=== PATIENT | male | born 1930 | race Caucasian/White ===

== ENCOUNTER 2018-04-30 13:05 | Inpatient (IN) | payer MEDICARE, BC ==
--- NOTE | 2018-04-30 13:55 | ED ---
General Adult HPI - General Chief complaint: Recheck/Abnormal Lab/Rx Stated complaint: coughing up blood Time Seen by Provider: 04/30/18 13:45 Source: patient, RN notes reviewed Mode of arrival: ambulatory Limitations: no limitations - History of Present Illness Initial comments: Patient is a pleasant 87-year-old male presenting to the emergency Department with hemoptysis. Onset was prior to arrival. Patient has had 4 or 5 episodes of tablespoons size bright red blood with cough. No history of similar symptoms previously. Patient is not on blood thinners. Patient has not had recent illness or recent cough. No other areas of bleeding. No dyspnea or chest pain. No leg swelling or calf pain. - Related Data Home Medications Medication Instructions Recorded Confirmed Albuterol Inhaler [Ventolin Hfa 2 puff INHALATION RT-Q6H PRN 04/30/18 04/30/18 Inhaler] Allopurinol [Zyloprim] 300 mg PO DAILY 04/30/18 04/30/18 Ascorbic Acid [Vitamin C] 1,000 mg PO DAILY 04/30/18 04/30/18 Aspirin [Adult Low Dose Aspirin EC] 81 mg PO DAILY 04/30/18 04/30/18 Carvedilol [Coreg] 3.125 mg PO BID 04/30/18 04/30/18 Cyanocobalamin (Vitamin B-12) 1,000 mcg PO DAILY 04/30/18 04/30/18 [Vitamin B-12] Gabapentin [Neurontin] 300 mg PO TID 04/30/18 04/30/18 Glucosam/Vito-Msm1/C/Bright/Bosw 1 tab PO DAILY 04/30/18 04/30/18 [Glucosamine-Chondroitin Tablet] Ibuprofen [Motrin] 800 mg PO TID PRN 04/30/18 04/30/18 Indomethacin [Indocin] 50 mg PO BID 04/30/18 04/30/18 Levothyroxine Sodium 125 mcg PO DAILY 04/30/18 04/30/18 Multivitamin [Men's Multi-Vitamin] 1 tab PO DAILY 04/30/18 04/30/18 Simvastatin [Zocor] 40 mg PO DAILY 04/30/18 04/30/18 Timolol [Betimol 0.5% Ophth Soln] 1 drop BOTH EYES BID 06/24/18 06/24/18 Allergies Allergy/AdvReac Type Severity Reaction Status Date / Time codeine AdvReac Nausea & Verified 04/30/18 14:45 Vomiting Review of Systems ROS Statement: Those systems with pertinent positive or pertinent negative responses have been documented in the HPI. ROS Other: All systems not noted in ROS Statement are negative. Constitutional: Denies: fever Eyes: Denies: eye pain ENT: Denies: ear pain Respiratory: Reports: hemoptysis. Denies: dyspnea Cardiovascular: Denies: chest pain Endocrine: Denies: fatigue Gastrointestinal: Denies: abdominal pain Genitourinary: Denies: dysuria Musculoskeletal: Denies: back pain Skin: Denies: rash Neurological: Denies: weakness Past Medical History Past Medical History: Coronary Artery Disease (CAD), Chest Pain / Angina History of Any Multi-Drug Resistant Organisms: None Reported Past Surgical History: Back Surgery, Coronary Bypass/CABG, Orthopedic Surgery Past Psychological History: No Psychological Hx Reported Smoking Status: Former smoker Past Alcohol Use History: Occasional Past Drug Use History: None Reported General Exam Limitations: no limitations General appearance: alert, in no apparent distress Head exam: Present: atraumatic Eye exam: Present: normal appearance, PERRL ENT exam: Present: normal oropharynx Neck exam: Present: normal inspection Respiratory exam: Present: normal lung sounds bilaterally Cardiovascular Exam: Present: regular rate, normal rhythm, systolic murmur ( Patient states he is aware of murmur) GI/Abdominal exam: Present: soft. Absent: tenderness Extremities exam: Present: normal inspection. Absent: pedal edema, calf tenderness Neurological exam: Present: alert Psychiatric exam: Present: normal affect, normal mood Skin exam: Present: normal color Course Vital Signs 04/30/18 04/30/18 13:21 13:49 Temperature 98.0 F Pulse Rate 71 Respiratory 18 18 Rate Blood Pressure 169/82 O2 Sat by Pulse 97 Oximetry EKG Findings - EKG Comments: EKG Findings:: Sinus rhythm at 67. For screening AV block [place] of 222. QRS 96. QT 388. QTC 409. Normal axis. Normal QRS. No acute ST change. Medical Decision Making - Medical Decision Making Patient reevaluated and resting comfortably in bed. Patient and family updated on results and concerns. Case was discussed in detail with Dr. Raphael, who will admit for Dr. Gutierrez. Patient states he does see Dr. Ruff. - Lab Data Result diagrams: 04/30/18 13:51 04/30/18 13:51 Lab Results 04/30/18 04/30/18 04/30/18 Range/Units 13:51 13:51 13:51 WBC 9.7 (3.8-10.6) k/uL RBC 3.81 L (4.30-5.90) m/uL Hgb 12.4 L (13.0-17.5) gm/dL Hct 37.9 L (39.0-53.0) % MCV 99.4 (80.0-100.0) fL MCH 32.4 (25.0-35.0) pg MCHC 32.6 (31.0-37.0) g/dL RDW 12.6 (11.5-15.5) % Plt Count 200 (150-450) k/uL Neutrophils % 72 % Lymphocytes % 18 % Monocytes % 6 % Eosinophils % 2 % Basophils % 0 % Neutrophils # 7.0 (1.3-7.7) k/uL Lymphocytes # 1.7 (1.0-4.8) k/uL Monocytes # 0.6 (0-1.0) k/uL Eosinophils # 0.1 (0-0.7) k/uL Basophils # 0.0 (0-0.2) k/uL PT 9.8 (9.0-12.0) sec INR 1.0 (<1.2) APTT 23.9 (22.0-30.0) sec Sodium 140 (137-145) mmol/L Potassium 5.4 H (3.5-5.1) mmol/L Chloride 104 (98-107) mmol/L Carbon Dioxide 23 (22-30) mmol/L Anion Gap 13 mmol/L BUN 35 H (9-20) mg/dL Creatinine 0.95 (0.66-1.25) mg/dL Est GFR (CKD-EPI)AfAm 82 (>60 ml/min/1.73 sqM) Est GFR (CKD-EPI)NonAf 71 (>60 ml/min/1.73 sqM) Glucose 108 H (74-99) mg/dL Calcium 9.0 (8.4-10.2) mg/dL Total Bilirubin 0.6 (0.2-1.3) mg/dL AST 22 (17-59) U/L ALT 29 (21-72) U/L Alkaline Phosphatase 85 (38-126) U/L Total Protein 7.5 (6.3-8.2) g/dL Albumin 4.3 (3.5-5.0) g/dL - Radiology Data Radiology results: report reviewed (Computed tomography scan of the chest shows no pulmonary embolism. Masslike areas right middle lobe and lower lobe. For neoplasm however pneumonia should be considered. Lymph nodes present.) Disposition Clinical Impression: Lung mass, Pneumonia, Hemoptysis Disposition: ADMITTED IP TO THIS HOSP Condition: Serious Is patient prescribed a controlled substance at d/c from ED?: No Referrals: Martin Gutierrez MD [Primary Care Provider] - 1-2 days Decision Time: 16:46
[2018-04-30 14:06] LABS: Basophils % (A) 0 %; Eosinophils # (A) 0.1 k/uL (0-0.7); Eosinophils % (A) 2 %; HCT 37.9 % (39.0-53.0); HGB 12.4 gm/dL (13.0-17.5); Lymphocytes # (A) 1.7 k/uL (1.0-4.8); Lymphocytes % (A) 18 %; MCH 32.4 pg (25.0-35.0); MCHC 32.6 g/dL (31.0-37.0); MCV 99.4 fL (80.0-100.0); Mean Platelet Volume 7.3; Monocytes # (A) 0.6 k/uL (0-1.0); Monocytes % (A) 6 %; Neutrophils % (A) 72 %; Platelet Count 200 k/uL (150-450); RBC 3.81 m/uL (4.30-5.90); RDW 12.6 % (11.5-15.5); WBC 9.7 k/uL (3.8-10.6)
[2018-04-30 14:14] LABS: Partial Thromboplastin Time 23.9 sec (22.0-30.0); Prothrombin Time 9.8 sec (9.0-12.0)
[2018-04-30 14:15] LABS: Albumin 4.3 g/dL (3.5-5.0); Potassium 5.4 mmol/L (3.5-5.1); Total Bilirubin 0.6 mg/dL (0.2-1.3); Total Protein 7.5 g/dL (6.3-8.2)
--- NOTE | 2018-04-30 15:28 | CT ---
CT CHEST FOR PULMONARY EMBOLISM. EXAMINATION TYPE: CT angio chest DATE OF EXAM: 04/30/2018 INDICATION: Hemoptysis, R/O PE CT DLP: 551 mGycm, Automated exposure control for dose reduction was used. CONTRAST: Patient injected with 85 mL of Isovue 370. COMPARISON: NONE TECHNIQUE: CT of the chest is performed on a spiral scan at 2 mm thick sections. Study is performed with intravenous contrast timed for evaluation for pulmonary embolism. This will limit additional po rtions of the evaluation. 3-D MIP images reconstructed by the technologist are reviewed on the compu ter in the coronal and sagittal planes. FINDINGS: No persistent filling defects are evident to suggest an acute pulmonary embolism. There is a 1.1 cm pretracheal lymph node which is enlarged. Multiple smaller lymph nodes are present. The ascending aorta diameter at the level of the main pulmonary artery is 3.8 cm. The main pulmona ry artery diameter at the bifurcation is 2.7 cm. There is a spiculated consolidation within the right middle lobe measuring 2.0 cm. Adjacent to the ma connor fissure at the right lower lobe is an additional spiculated area measuring 2.6 x 2.1 cm. A infrah ilar consolidation measures 1.6 cm in size. Some streak opacities in the right middle lobe. Findings could be related to masses or pneumonia. Clinical correlation is recommended. Limited CT section through the upper abdomen are unremarkable. IMPRESSIONS: 1. There are masslike areas within the right lung right middle lobe and right lower lobe discussed ab ove. Findings are suspicious for neoplasm. Other etiologies however could be considered such as pneum onia. 2. There is a 1.1 cm pretracheal lymph node which is enlarged by CT criteria. Additional smaller lymp hadenopathy is present. 3. No acute pulmonary embolism.
[2018-04-30] MEDS ORDERED: PNEUMONIA PROTOCOL UTILIZED 1 EACH MISC PO PRN (16:46)
[2018-04-30] MEDS ORDERED: AZITHROMYCIN 500 MG in DEXTROSE 5% IN WATER 250 ML IVPB STA ×2 (16:59)
[2018-04-30] MEDS ORDERED: cefTRIAXone IN SWFI 1,000 MG/10 ML SYRINGE IVP STA (16:59)
[2018-04-30 17:33] VITALS: BMI 25.9
[2018-04-30] MEDS: SODIUM CHLORIDE 0.9% 1,000 ML IV SCH (17:44)
[2018-04-30] MEDS ORDERED: IBUPROFEN 800 MG TAB PO PRN (18:51)
[2018-04-30] MEDS ORDERED: ALBUTEROL INHALER 60 PUFF/8 GM INHALER INHALATION PRN (18:51)
[2018-04-30] MEDS: INDOMETHACIN 25 MG CAP PO SCH (21:48)
[2018-04-30] MEDS: CARVEDILOL 3.125 MG TAB PO SCH (21:49)
[2018-04-30] MEDS: GABAPENTIN 300 MG CAP PO SCH (21:49)
[2018-04-30] MEDS: TIMOLOL 0.5% OPHTH DROPS 5 ML BTL BOTH EYES SCH (22:12)
[2018-05-01] MEDS: LEVOTHYROXINE 125 MCG TAB PO SCH (05:18)
[2018-05-01] MEDS: SODIUM CHLORIDE 0.9% 1,000 ML IV SCH ×3 (05:20→21:23)
--- NOTE | 2018-05-01 07:19 | XR ---
EXAMINATION TYPE: XR chest 2V DATE OF EXAM: 05/01/2018 COMPARISON: 09/23/2016 INDICATION: Pneumonia, coughing up blood TECHNIQUE: Frontal and lateral views of the chest are obtained. FINDINGS: The heart size is normal. The pulmonary vasculature is normal. There is vague increased opacity through the right midlung. There is hyperinflation flattened diaphra gms compatible COPD. IMPRESSION: 1. Mild infiltrates at the right midlung. Correlate for developing pneumonia. Atelectasis could be co nsidered. 2. COPD
[2018-05-01] MEDS: ATORVASTATIN 20 MG TAB PO SCH (07:42)
[2018-05-01] MEDS: CYANOCOBALAMIN 500 MCG TAB PO SCH (07:42)
[2018-05-01] MEDS: ASPIRIN 81 MG PO SCH (07:42)
[2018-05-01] MEDS: TIMOLOL 0.5% OPHTH DROPS 5 ML BTL BOTH EYES SCH ×2 (07:42→21:16)
[2018-05-01] MEDS: INDOMETHACIN 25 MG CAP PO SCH ×2 (07:43→21:17)
[2018-05-01] MEDS: CARVEDILOL 3.125 MG TAB PO SCH ×2 (07:43→18:08)
[2018-05-01] MEDS: ALLOPURINOL 300 MG TAB PO SCH (07:43)
[2018-05-01] MEDS: ASCORBIC ACID 500 MG TAB PO SCH (07:43)
--- NOTE | 2018-05-01 07:57 | P.CNPUL ---
History of Present Illness Consult date: 04/30/18 (late entry note) Reason for consult: dyspnea, cough, pneumonia, lung mass Chief complaint: Hemoptysis History of present illness: 87-year-old male well-known to me for problems associated chronic persistent asthma and chronic bronchitis has been on inhaled steroids antileukotrines as well as B2 agonists, patient the denies any fever but however in the last 2 weeks has been feeling very weak and was getting short of breath on activity and exertion he was playing his been using the without any problem 2 days prior to coming into the hospital on the day of admission he was admitted with episode of hemoptysis which occurred 3 times in succession and since then has a stopped, episode happened while he was watching ballgame of grandson he felt coughing episode went to the washroom and has hand full of bright red blood followed by 2 more episode with those problem he presented into the emergency department was seen evaluated examined Mr. Sanford admitted into the hospital since his been hospitalized has been on broad-spectrum antibiotics no episode of hemoptysis has been seen, he denies any exposure to TB in the past has been a smoker however quit several years ago he denies any chest pain denies similar episode in the past denies any weight loss night sweats fever or chills, denies any seizure-like to a loss of consciousness) denies any bowel or bladder dysfunction Review of Systems All systems: negative Past Medical History Past Medical History: Coronary Artery Disease (CAD), Chest Pain / Angina History of Any Multi-Drug Resistant Organisms: None Reported Past Surgical History: Back Surgery, Coronary Bypass/CABG, Orthopedic Surgery Additional Past Surgical History / Comment(s): bilateral carpal tunnel, cataracts Past Anesthesia/Blood Transfusion Reactions: Motion Sickness Past Psychological History: No Psychological Hx Reported Smoking Status: Former smoker Past Alcohol Use History: Occasional Past Drug Use History: None Reported - Past Family History Father Additional Family Medical History / Comment(s): cancer intestinal Mother Family Medical History: No Reported History Medications and Allergies Home Medications Medication Instructions Recorded Confirmed Type Albuterol Inhaler [Ventolin Hfa 2 puff INHALATION RT-Q6H PRN 04/30/18 04/30/18 History Inhaler] Allopurinol [Zyloprim] 300 mg PO DAILY 04/30/18 04/30/18 History Ascorbic Acid [Vitamin C] 1,000 mg PO DAILY 04/30/18 04/30/18 History Aspirin [Adult Low Dose Aspirin EC] 81 mg PO DAILY 04/30/18 04/30/18 History Carvedilol [Coreg] 3.125 mg PO BID 04/30/18 04/30/18 History Cyanocobalamin (Vitamin B-12) 1,000 mcg PO DAILY 04/30/18 04/30/18 History [Vitamin B-12] Gabapentin [Neurontin] 300 mg PO TID 04/30/18 04/30/18 History Glucosam/Vito-Msm1/C/Bright/Bosw 1 tab PO DAILY 04/30/18 04/30/18 History [Glucosamine-Chondroitin Tablet] Ibuprofen [Motrin] 800 mg PO TID PRN 04/30/18 04/30/18 History Indomethacin [Indocin] 50 mg PO BID 04/30/18 04/30/18 History Levothyroxine Sodium 125 mcg PO DAILY 04/30/18 04/30/18 History Multivitamin [Men's Multi-Vitamin] 1 tab PO DAILY 04/30/18 04/30/18 History Simvastatin [Zocor] 40 mg PO DAILY 04/30/18 04/30/18 History Timolol [Betimol 0.5% Ophth Soln] 1 drop BOTH EYES BID 04/30/18 04/30/18 History Allergies Allergy/AdvReac Type Severity Reaction Status Date / Time codeine AdvReac Nausea & Verified 04/30/18 14:45 Vomiting Physical Exam Vitals: Vital Signs Temp Pulse Pulse Pulse Resp BP BP 05/01/18 07:25 97.9 F 88 16 137/69 05/01/18 01:17 98.4 F 82 17 126/65 04/30/18 20:18 97.9 F 81 18 120/70 04/30/18 17:19 98 F 75 16 138/71 04/30/18 17:16 98.0 F 75 18 138/71 04/30/18 17:01 99.1 F 74 18 140/66 04/30/18 13:49 18 04/30/18 13:21 98.0 F 71 18 169/82 Pulse Ox 04/30/18 20:18 97 04/30/18 17:19 98 04/30/18 17:16 98 04/30/18 17:01 96 04/30/18 13:49 04/30/18 13:21 97 Intake and Output 04/30/18 22:59 Intake Total 237 Output Total Balance 237 Intake: Intake, IV Titration Amount Azithromycin 500 mg In Dextrose 5% in Water 250 ml @ 125 mls/hr IVPB ONCE STA Rx#:[id number] Sodium Chloride 0.9% 1, 000 ml @ 100 mls/hr IV . Q10H [facility] Rx#:[id number] Oral 237 Output: Urine Other: Voiding Method Toilet # Voids 1 Weight 79.832 kg General appearance: alert, in no apparent distress Head exam: Present: atraumatic Eye exam: Present: normal appearance, PERRL ENT exam: Present: normal oropharynx Neck exam: Present: normal inspection Respiratory exam: Present: normal lung sounds bilaterally Cardiovascular Exam: Present: regular rate, normal rhythm, systolic murmur ( Patient states he is aware of murmur) GI/Abdominal exam: Present: soft. Absent: tenderness Extremities exam: Present: normal inspection. Absent: pedal edema, calf tenderness Neurological exam: Present: alert Psychiatric exam: Present: normal affect, normal mood Skin exam: Present: normal color Results - Laboratory Findings CBC and BMP: 04/30/18 13:51 04/30/18 13:51 PT/INR, D-dimer PT 9.8 sec (9.0-12.0) 04/30/18 13:51 INR 1.0 (<1.2) 04/30/18 13:51 Abnormal lab findings: Abnormal Labs 04/30/18 04/30/18 13:51 13:51 RBC 3.81 L Hgb 12.4 L Hct 37.9 L Potassium 5.4 H BUN 35 H Glucose 108 H - Diagnostic Findings Chest x-ray: report reviewed, image reviewed CT scan - chest: report reviewed, image reviewed (Computed tomography scan is significant for a right lower lobe dense infiltrate and peribronchial thickening also has a nodular infiltrate in the right lobe and middle lobe as well as the right upper lobe given though it has appearance of his spiculation but however a surgical air bronchograms can be noted reactive lymphadenopathy in the perihilar area has been noted in the pretracheal region overall appearance of pneumonia is more likely however new plastic processes is still cannot be excluded patient will benefit for the follow-up CAT scan after treatment of pneumonia) Assessment and Plan Assessment: Right-sided multi lobar pneumonia Hemoptysis related to above Occult neoplastic process for lung cancer cannot be excluded Spiculated right-sided pulmonary nodules versus infiltrate Right tracheal lymphadenopathy infectious versus noninfectious Chronic persistent severe asthma Chronic gout Dyslipidemia Hypertension hypertensive cardiovascular disease Plan: Gentle rehydration Broad-spectrum antibiotics Continue home medications Hemoptysis has a stopped will monitor and observe on antibiotics Patient may need a bronchoscopy on outpatient basis as per clinical response of therapy and recurrence of hemoptysis Patient would definitely need a computed tomography scan of his chest after 6-8 weeks We'll follow closely further recommendations pending plan of care as per clinical response of the patient Time with Patient: Greater than 30
--- NOTE | 2018-05-01 08:01 | P.PN ---
Subjective Progress Note Date: 05/01/18 Principal diagnosis: Hemoptysis, Multi lobar right-sided pneumonia, spiculated lesion versus round pneumonia right middle lobe and right upper lobe, reactive lymphadenopathy, chronic persistent asthma, chronic gout, hypertension and hypertensive cardiovascular disease, dyslipidemia 05/01/2018, patient seen eval examined during the rounds clinically patient is doing better denies any cough or sputum production denies any hemoptysis breathing more comfortably CAT scan finding reviewed with the patient at length , denies any chest pain patient did admit for shortness of breath more than usual for the last 2 weeks with getting tired easily 87-year-old male well-known to me for problems associated chronic persistent asthma and chronic bronchitis has been on inhaled steroids antileukotrines as well as B2 agonists, patient the denies any fever but however in the last 2 weeks has been feeling very weak and was getting short of breath on activity and exertion he was playing his been using the without any problem 2 days prior to coming into the hospital on the day of admission he was admitted with episode of hemoptysis which occurred 3 times in succession and since then has a stopped, episode happened while he was watching [employer] he felt coughing episode went to the washroom and has hand full of bright red blood followed by 2 more episode with those problem he presented into the emergency department was seen evaluated examined Mr. Sanford admitted into the hospital since his been hospitalized has been on broad-spectrum antibiotics no episode of hemoptysis has been seen, he denies any exposure to TB in the past has been a smoker however quit several years ago he denies any chest pain denies similar episode in the past denies any weight loss night sweats fever or chills, denies any seizure-like to a loss of consciousness) denies any bowel or bladder dysfunction Objective - Vital Signs Vital signs: Vital Signs Temp 97.9 F 05/01/18 07:25 Pulse 88 05/01/18 07:25 Resp 16 05/01/18 07:25 BP 137/69 05/01/18 07:25 Pulse Ox 95 05/01/18 07:25 Intake & Output 04/30/18 05/01/18 05/01/18 18:59 06:59 18:59 Intake Total 237 565 Output Total 300 Balance 237 265 Weight 79.832 kg Intake: Intake, IV Titration 565 Amount Azithromycin 500 mg In 125 Dextrose 5% in Water 250 ml @ 125 mls/hr IVPB ONCE STA Rx#:[id number] Sodium Chloride 0.9% 1, 440 000 ml @ 100 mls/hr IV . Q10H [facility] Rx#:[id number] Oral 237 Output: Urine 300 Other: Voiding Method Toilet # Voids 3 - Exam General appearance: alert, in no apparent distress Head exam: Present: atraumatic Eye exam: Present: normal appearance, PERRL ENT exam: Present: normal oropharynx Neck exam: Present: normal inspection Respiratory exam: Present: normal lung sounds bilaterally Cardiovascular Exam: Present: regular rate, normal rhythm, systolic murmur ( Patient states he is aware of murmur) GI/Abdominal exam: Present: soft. Absent: tenderness Extremities exam: Present: normal inspection. Absent: pedal edema, calf tenderness Neurological exam: Present: alert Psychiatric exam: Present: normal affect, normal mood Skin exam: Present: normal color - Labs CBC & Chem 7: 04/30/18 13:51 04/30/18 13:51 Labs: Abnormal Lab Results - Last 24 Hours (Table) 04/30/18 04/30/18 Range/Units 13:51 13:51 RBC 3.81 L (4.30-5.90) m/uL Hgb 12.4 L (13.0-17.5) gm/dL Hct 37.9 L (39.0-53.0) % Potassium 5.4 H (3.5-5.1) mmol/L BUN 35 H (9-20) mg/dL Glucose 108 H (74-99) mg/dL Assessment and Plan Assessment: Right-sided multi lobar pneumonia Hemoptysis related to above Occult neoplastic process like lung cancer cannot be excluded Spiculated right-sided pulmonary nodules versus infiltrate Right tracheal lymphadenopathy infectious versus noninfectious Chronic persistent severe asthma Chronic gout Dyslipidemia Hypertension hypertensive cardiovascular disease Plan: Gentle rehydration Broad-spectrum antibiotics Continue home medications Hemoptysis has a stopped will monitor and observe on antibiotics Patient may need a bronchoscopy on outpatient basis as per clinical response of therapy and recurrence of hemoptysis, we'll discuss with the primary service Patient would definitely need a computed tomography scan of his chest after 6-8 weeks We'll follow closely further recommendations pending plan of care as per clinical response of the patient Time with Patient: Greater than 30
[2018-05-01] MEDS: cefTRIAXone IN SWFI 1,000 MG/10 ML SYRINGE IVP SCH (08:09)
[2018-05-01] MEDS ORDERED: NON-FORMULARY DRUG (Glucosam/Chon-Msm1/C/Mang/Bosw [Glucosamine-Chondroitin Tablet] 1 TAB) PO SCH (09:00)
[2018-05-01] MEDS: GABAPENTIN 300 MG CAP PO SCH ×3 (10:37→21:17)
[2018-05-01] MEDS: MULTIVITAMINS, THERA 1 EACH TAB PO SCH (13:17)
--- NOTE | 2018-05-01 13:52 | P.HPIM ---
History of Present Illness This is an 87-year-old male, patient of Dr. Gutierrez, with a past medical history of chronic persistent asthma, chronic bronchitis, coronary artery disease status post CABG, and carotid stenosis. Patient states he just has a follow up last week with Dr Gutierrez and Dr. Ruff for his regular routine follow up visits and was feeling well. States yesterday he went to see his grandson play in his baseball game when he started to cough, states he coughed up some bright red blood. Afterwards, he coughed two more times and states hemoptysis worsened, so he went to the emergency department for evaluation. He denies any weakness, fever, chills, chest pain, no recent travel. Upon arrival to the emergency department chest x-ray revealed mild infiltrates at the right midlung, and COPD. A CT of the chest was obtained, there was a mass-like area in the right lung middle lobe, there was suspicion for neoplasm, no pulmonary embolism. Pulmonary was consulted, he was started on ceftriaxone 1000 mg IV piggyback every 24 hours and azithromycin 500mg daily, for multilobar right- sided pneumonia, blood cultures and sputum cultures were obtained and are pending. Patient reports since he has not had any further episodes of hemoptysis, he denies any shortness of breath. At this time pulmonology is recommending treatment for pneumonia and to repeat computed tomography scan of his chest in about 6-8 weeks as outpatient. Review of Systems Constitutional: Denies chills, Denies fatigue, Denies fever, Denies night sweats , Denies poor appetite Ears, nose, mouth and throat: Denies dysphagia, Denies epistaxis, Denies headache, Denies nasal congestion, Denies post-nasal drip, Denies sinus pain, Denies sinus pressure Cardiovascular: Reports claudication, Denies dyspnea on exertion, Denies edema, Denies leg edema, Denies palpitations, Denies shortness of breath, Denies syncope Respiratory: Reports congestion, Reports cough, Reports cough with sputum, Reports hemoptysis, Denies pain, Denies wheezing Gastrointestinal: Denies abdominal pain, Denies bloating, Denies constipation, Denies heartburn, Denies indigestion, Denies nausea, Denies vomiting Genitourinary: Denies flank pain, Denies hematuria, Denies incontinence, Denies kidney stones, Denies urinary frequency, Denies urinary retention Musculoskeletal: Reports muscle cramps, Denies arm numbness/tingling, Denies frequent falls, Denies gait dysfunction, Denies muscle weakness Integumentary: Denies lesions, Denies pruritus, Denies rash, Denies wounds Neurological: Denies ataxia, Denies confusion, Denies gait dysfunction, Denies headaches, Denies lack of coordination, Denies loss of vision, Denies seizures, Denies syncope, Denies visual changes Psychiatric: Denies anxiety, Denies confusion, Denies depression, Denies irritability, Denies memory loss, Denies mood swings Endocrine: Denies cold intolerance, Denies excessive sweating, Denies fatigue, Denies nocturia, Denies weight change Hematologic/Lymphatic: Denies easy bleeding, Denies easy bruising, Denies lymphadenopathy Past Medical History Past Medical History: Coronary Artery Disease (CAD), Chest Pain / Angina, Thyroid Disorder Additional Past Medical History / Comment(s): carotid stenosis History of Any Multi-Drug Resistant Organisms: None Reported Past Surgical History: Back Surgery, Coronary Bypass/CABG, Orthopedic Surgery Additional Past Surgical History / Comment(s): bilateral carpal tunnel, cataracts Past Anesthesia/Blood Transfusion Reactions: Motion Sickness Past Psychological History: No Psychological Hx Reported Smoking Status: Former smoker Past Alcohol Use History: Occasional Additional Past Alcohol Use History / Comment(s): was a 2 PPD smoker, quit in 1975 Past Drug Use History: None Reported - Past Family History Father Family Medical History: Cancer (colon cancer ) Additional Family Medical History / Comment(s): cancer intestinal Mother Family Medical History: No Reported History ( of "old age" at 89) Brother(s) Family Medical History: Cancer (brain ca), CVA/TIA ( from CVA) Sister(s) Family Medical History: COPD Medications and Allergies Home Medications Medication Instructions Recorded Confirmed Type Albuterol Inhaler [Ventolin Hfa 2 puff INHALATION RT-Q6H PRN 04/30/18 04/30/18 History Inhaler] Allopurinol [Zyloprim] 300 mg PO DAILY 04/30/18 04/30/18 History Ascorbic Acid [Vitamin C] 1,000 mg PO DAILY 04/30/18 04/30/18 History Aspirin [Adult Low Dose Aspirin EC] 81 mg PO DAILY 04/30/18 04/30/18 History Carvedilol [Coreg] 3.125 mg PO BID 04/30/18 04/30/18 History Cyanocobalamin (Vitamin B-12) 1,000 mcg PO DAILY 04/30/18 04/30/18 History [Vitamin B-12] Gabapentin [Neurontin] 300 mg PO TID 04/30/18 04/30/18 History Glucosam/Vito-Msm1/C/Bright/Bosw 1 tab PO DAILY 04/30/18 04/30/18 History [Glucosamine-Chondroitin Tablet] Ibuprofen [Motrin] 800 mg PO TID PRN 04/30/18 04/30/18 History Indomethacin [Indocin] 50 mg PO BID 04/30/18 04/30/18 History Levothyroxine Sodium 125 mcg PO DAILY 04/30/18 04/30/18 History Multivitamin [Men's Multi-Vitamin] 1 tab PO DAILY 04/30/18 04/30/18 History Simvastatin [Zocor] 40 mg PO DAILY 04/30/18 04/30/18 History Timolol [Betimol 0.5% Ophth Soln] 1 drop BOTH EYES BID 04/30/18 04/30/18 History Allergies Allergy/AdvReac Type Severity Reaction Status Date / Time codeine AdvReac Nausea & Verified 04/30/18 14:45 Vomiting Physical Exam Vitals: Vital Signs Temp Pulse Pulse Pulse Resp BP BP 05/01/18 07:25 97.9 F 88 16 137/69 05/01/18 01:17 98.4 F 82 17 126/65 04/30/18 20:18 97.9 F 81 18 120/70 04/30/18 17:19 98 F 75 16 138/71 04/30/18 17:16 98.0 F 75 18 138/71 04/30/18 17:01 99.1 F 74 18 140/66 04/30/18 13:49 18 04/30/18 13:21 98.0 F 71 18 169/82 Pulse Ox 05/01/18 07:25 95 05/01/18 01:17 97 04/30/18 20:18 97 04/30/18 17:19 98 04/30/18 17:16 98 04/30/18 17:01 96 04/30/18 13:49 04/30/18 13:21 97 Intake and Output 04/30/18 05/01/18 05/01/18 22:59 06:59 14:59 Intake Total 237 565 Output Total 300 Balance 237 265 Intake: Intake, IV Titration 565 Amount Azithromycin 500 mg In 125 Dextrose 5% in Water 250 ml @ 125 mls/hr IVPB ONCE [facility] Rx#:[id number] Sodium Chloride 0.9% 1, 440 000 ml @ 100 mls/hr IV . Q10H [facility] Rx#:[id number] Oral 237 Output: Urine 300 Other: Voiding Method Toilet # Voids 1 3 Weight 79.832 kg - Constitutional General appearance: average body habitus, cooperative, no acute distress - EENT Eyes: PERRLA, normal appearance ENT: no hard of hearing, hearing grossly normal, normal oropharynx - Neck Neck: no lymphadenopathy, normal ROM, no rigidity, no thyromegaly Thyroid: bilateral: normal size, negative: enlarged, firm, nodule - Respiratory Respiratory: right: diminished, dullness, rales, left: CTA, rhonchi, negative: wheezing, prolonged expiration - Cardiovascular Rhythm: regular Heart sounds: normal: S1, S2 Abnormal Heart Sounds: systolic murmur - Gastrointestinal General gastrointestinal: no distended, no hepatomegaly, normal bowel sounds, no organomegaly, soft - Integumentary Integumentary: normal, no rash, no ulcer - Neurologic Neurologic: CNII-XII intact - Musculoskeletal Musculoskeletal: gait normal, strength equal bilaterally - Psychiatric Psychiatric: A&O x's 3, appropriate affect Results CBC & Chem 7: 04/30/18 13:51 04/30/18 13:51 Labs: Abnormal Lab Results - Last 24 Hours (Table) 04/30/18 04/30/18 Range/Units 13:51 13:51 RBC 3.81 L (4.30-5.90) m/uL Hgb 12.4 L (13.0-17.5) gm/dL Hct 37.9 L (39.0-53.0) % Potassium 5.4 H (3.5-5.1) mmol/L BUN 35 H (9-20) mg/dL Glucose 108 H (74-99) mg/dL Thrombosis Risk Factor Assmnt - Choose All That Apply Each Factor Represents 1 point: Obesity (BMI >25), Serious lung disease incl. pneumonia (< 1month) Each Risk Factor Represents 2 Points: Age 61-74 years Thrombosis Risk Factor Assessment Total Risk Factor Score: 4 Thrombosis Risk Factor Assessment Level: Moderate Risk Assessment and Plan Plan: 1. Multilobular pneumonia. Spiculated right-sided pulmonary nodule versus infiltrate, rule out malignant lung mass, pulmonology is on consult, patient may need bronchoscopy depending on clinical response of therapy, will need repeat computed tomography scan of his chest in about 6-8 weeks as outpatient basis. Sputum and blood cultures obtained, ceftriaxone 1000 mg IV piggyback every 24 hours, azithromycin 500 mg daily, DuoNeb's every 4 hours, supplemental oxygen as needed. 2. Hemoptysis related to bronchial bleed secondary to multi lobular pneumonia. Patient has not had any further episodes of hemoptysis, will treat underlying pneumonia, monitor for any recurrence of the hemoptysis. 3. Neurogenic claudication. Will have to rule out PAD, will order arterial Doppler as outpatient basis, continue gabapentin 300 mg 3 times a day. 4. Coronary artery disease. Continue aspirin 81 mg daily, atorvastatin 20 mg daily, carvedilol 3.125 mg twice a day. 5. Hypothyroidism. Continue levothyroxine 125 MCG daily. 6. Chronic back pain, history of multiple back surgeries. Continue indomethacin 50 mg twice a day 7. Hyperlipidemia. Continue atorvastatin 20 mg daily 8. History of gout. No recent flare, continue indomethacin 50 mg twice a day and allopurinol 300 mg daily. 9. History of glaucoma. Continue timolol 1 drop both eyes twice a day 10. DVT prophylaxis. No anticoagulation due to active bleeding, will encourage ambulation & SED's 11. GI prophylaxis. Pepcid 20mg BID The above impression and plan of care have been discussed and directed by signing physician. Crystal Spencer nurse practitioner acting as scribe for signing physician.
[2018-05-01] MEDS: AZITHROMYCIN 500 MG TAB PO SCH (17:59)
[2018-05-01] MEDS: FAMOTIDINE 20 MG TAB PO SCH (21:16)
[2018-05-02] MEDS: LEVOTHYROXINE 125 MCG TAB PO SCH (05:51)
[2018-05-02] MEDS: MULTIVITAMINS, THERA 1 EACH TAB PO SCH (07:26)
[2018-05-02] MEDS: ASCORBIC ACID 500 MG TAB PO SCH (07:26)
[2018-05-02] MEDS: CYANOCOBALAMIN 500 MCG TAB PO SCH (07:26)
[2018-05-02] MEDS: GABAPENTIN 300 MG CAP PO SCH ×3 (07:26→22:35)
[2018-05-02] MEDS: FAMOTIDINE 20 MG TAB PO SCH ×2 (07:26→20:14)
[2018-05-02] MEDS: CARVEDILOL 3.125 MG TAB PO SCH ×2 (07:27→16:30)
[2018-05-02] MEDS: INDOMETHACIN 25 MG CAP PO SCH ×2 (07:27→20:14)
[2018-05-02] MEDS: ALLOPURINOL 300 MG TAB PO SCH (07:27)
[2018-05-02] MEDS: TIMOLOL 0.5% OPHTH DROPS 5 ML BTL BOTH EYES SCH ×2 (07:28→20:14)
[2018-05-02] MEDS: ATORVASTATIN 20 MG TAB PO SCH (07:28)
[2018-05-02] MEDS: SODIUM CHLORIDE 0.9% 1,000 ML IV SCH ×2 (07:28→10:57)
[2018-05-02] MEDS: ASPIRIN 81 MG PO SCH (07:28)
[2018-05-02] MEDS: cefTRIAXone IN SWFI 1,000 MG/10 ML SYRINGE IVP SCH (09:18)
--- NOTE | 2018-05-02 12:36 | P.PN ---
Subjective This is an 87-year-old male, patient of Dr. Gutierrez, with a past medical history of chronic persistent asthma, chronic bronchitis, coronary artery disease status post CABG, and carotid stenosis. Patient states he just has a follow up last week with Dr Gutierrez and Dr. Ruff for his regular routine follow up visits and was feeling well. States yesterday he went to see his grandson play in his baseball game when he started to cough, states he coughed up some bright red blood. Afterwards, he coughed two more times and states hemoptysis worsened, so he went to the emergency department for evaluation. He denies any weakness, fever, chills, chest pain, no recent travel. Upon arrival to the emergency department chest x-ray revealed mild infiltrates at the right midlung, and COPD. A CT of the chest was obtained, there was a mass-like area in the right lung middle lobe, there was suspicion for neoplasm, no pulmonary embolism. Pulmonary was consulted, he was started on ceftriaxone 1000 mg IV piggyback every 24 hours and azithromycin 500mg daily, for multilobar right- sided pneumonia, blood cultures and sputum cultures were obtained and are pending. Patient reports since he has not had any further episodes of hemoptysis, he denies any shortness of breath. At this time pulmonology is recommending treatment for pneumonia and to repeat computed tomography scan of his chest in about 6-8 weeks as outpatient. 05/02: Patient evaluated today with at bedside. He reports he is feeling much better, he has not had any further episodes of hemoptysis. Will continue with IV antibiotics with ceftriaxone and azithromycin according to pulmonology notes, planning to schedule patient for bronchoscopy possibly tomorrow morning. Blood cultures show no growth to date, he remains afebrile, vital signs stable. Objective - Vital Signs Vital signs: Vital Signs Temp 97.6 F 05/02/18 07:25 Pulse 78 05/02/18 07:25 Resp 17 05/02/18 07:32 BP 146/72 05/02/18 07:25 Pulse Ox 97 05/02/18 07:25 Intake & Output 05/01/18 05/02/18 05/02/18 18:59 06:59 18:59 Intake Total 500 1450 Output Total 550 Balance 500 900 Intake: Intake, IV Titration 1150 Amount Sodium Chloride 0.9% 1, 1150 000 ml @ 100 mls/hr IV . Q10H [facility] Rx#:[id number] Oral 500 300 Output: Urine 550 Other: Voiding Method Toilet # Voids 1 1 - Exam - Constitutional General appearance: average body habitus, cooperative, no acute distress - EENT Eyes: PERRLA, normal appearance ENT: no hard of hearing, hearing grossly normal, normal oropharynx - Neck Neck: no lymphadenopathy, normal ROM, no rigidity, no thyromegaly Thyroid: bilateral: normal size, negative: enlarged, firm, nodule - Respiratory Respiratory: right: diminished, dullness, rales, left: CTA, rhonchi, negative: wheezing, prolonged expiration - Cardiovascular Rhythm: regular Heart sounds: normal: S1, S2 Abnormal Heart Sounds: systolic murmur - Gastrointestinal General gastrointestinal: no distended, no hepatomegaly, normal bowel sounds, no organomegaly, soft - Integumentary Integumentary: normal, no rash, no ulcer - Neurologic Neurologic: CNII-XII intact - Musculoskeletal Musculoskeletal: gait normal, strength equal bilaterally - Psychiatric Psychiatric: A&O x's 3, appropriate affect - Labs CBC & Chem 7: 04/30/18 13:51 04/30/18 13:51 Labs: Microbiology - Last 24 Hours (Table) 04/30/18 18:14 Blood Culture - Preliminary Blood No Growth after 24 hours 04/30/18 18:20 Blood Culture - Preliminary Blood No Growth after 24 hours Assessment and Plan Plan: 1. Multilobular pneumonia. Spiculated right-sided pulmonary nodule versus infiltrate, rule out malignant lung mass, pulmonology is on consult, patient may need bronchoscopy depending on clinical response of therapy, will need repeat computed tomography scan of his chest in about 6-8 weeks as outpatient basis. Sputum and blood cultures obtained, ceftriaxone 1000 mg IV piggyback every 24 hours, azithromycin 500 mg daily, DuoNeb's every 4 hours, supplemental oxygen as needed. Possible bronchoscopy tomorrow morning. 2. Hemoptysis related to bronchial bleed secondary to multi lobular pneumonia. Patient has not had any further episodes of hemoptysis, will treat underlying pneumonia, monitor for any recurrence of the hemoptysis. 3. Neurogenic claudication. Will have to rule out PAD, will order arterial Doppler as outpatient basis, continue gabapentin 300 mg 3 times a day. 4. Coronary artery disease. Continue aspirin 81 mg daily, atorvastatin 20 mg daily, carvedilol 3.125 mg twice a day. 5. Hypothyroidism. Continue levothyroxine 125 MCG daily. 6. Chronic back pain, history of multiple back surgeries. Continue indomethacin 50 mg twice a day 7. Hyperlipidemia. Continue atorvastatin 20 mg daily 8. History of gout. No recent flare, continue indomethacin 50 mg twice a day and allopurinol 300 mg daily. 9. History of glaucoma. Continue timolol 1 drop both eyes twice a day 10. DVT prophylaxis. No anticoagulation due to active bleeding, will encourage ambulation & SED's 11. GI prophylaxis. Pepcid 20mg BID The above impression and plan of care have been discussed and directed by signing physician. Crystal Spencer nurse practitioner acting as scribe for signing physician.
[2018-05-02] MEDS: AZITHROMYCIN 500 MG TAB PO SCH (16:28)
--- NOTE | 2018-05-02 17:27 | P.PN ---
Subjective Progress Note Date: 05/02/18 Principal diagnosis: Hemoptysis, Multi lobar right-sided pneumonia, spiculated lesion versus round pneumonia right middle lobe and right upper lobe, reactive lymphadenopathy, chronic persistent asthma, chronic gout, hypertension and hypertensive cardiovascular disease, dyslipidemia 05/02/2018, patient seen eval examined during the rounds clinically patient has been doing better with no more hemoptysis has been seen by physical present at bedside patient has a significant improvement and wheezing noted able to get up and move around but still get short of breath does have intermittent dry nonproductive cough, computed tomography scan finding reviewed with the patient as well as his his also reviewed the bronchoscopy procedure along with the risk alternative and complication patient is scheduled for bronchoscopy tomorrow 05/01/2018, patient seen eval examined during the rounds clinically patient is doing better denies any cough or sputum production denies any hemoptysis breathing more comfortably CAT scan finding reviewed with the patient at length , denies any chest pain patient did admit for shortness of breath more than usual for the last 2 weeks with getting tired easily 87-year-old male well-known to me for problems associated chronic persistent asthma and chronic bronchitis has been on inhaled steroids antileukotrines as well as B2 agonists, patient the denies any fever but however in the last 2 weeks has been feeling very weak and was getting short of breath on activity and exertion he was playing his been using the without any problem 2 days prior to coming into the hospital on the day of admission he was admitted with episode of hemoptysis which occurred 3 times in succession and since then has a stopped, episode happened while he was watching [employer] he felt coughing episode went to the washroom and has hand full of bright red blood followed by 2 more episode with those problem he presented into the emergency department was seen evaluated examined Mr. Sanford admitted into the hospital since his been hospitalized has been on broad-spectrum antibiotics no episode of hemoptysis has been seen, he denies any exposure to TB in the past has been a smoker however quit several years ago he denies any chest pain denies similar episode in the past denies any weight loss night sweats fever or chills, denies any seizure-like to a loss of consciousness) denies any bowel or bladder dysfunction Objective - Vital Signs Vital signs: Vital Signs Temp 98.3 F 05/02/18 15:00 Pulse 63 05/02/18 15:00 Resp 16 05/02/18 15:00 BP 126/67 05/02/18 15:00 Pulse Ox 97 05/02/18 15:00 Intake & Output 05/01/18 05/02/18 05/02/18 18:59 06:59 18:59 Intake Total 500 1450 Output Total 550 Balance 500 900 Intake: Intake, IV Titration 1150 Amount Sodium Chloride 0.9% 1, 1150 000 ml @ 100 mls/hr IV . Q10H [facility] Rx#:[id number] Oral 500 300 Output: Urine 550 Other: Voiding Method Toilet # Voids 1 1 - Exam General appearance: alert, in no apparent distress Head exam: Present: atraumatic Eye exam: Present: normal appearance, PERRL ENT exam: Present: normal oropharynx Neck exam: Present: normal inspection Respiratory exam: Present: normal lung sounds bilaterally Cardiovascular Exam: Present: regular rate, normal rhythm, systolic murmur ( Patient states he is aware of murmur) GI/Abdominal exam: Present: soft. Absent: tenderness Extremities exam: Present: normal inspection. Absent: pedal edema, calf tenderness Neurological exam: Present: alert Psychiatric exam: Present: normal affect, normal mood Skin exam: Present: normal color - Labs CBC & Chem 7: 04/30/18 13:51 04/30/18 13:51 Labs: Microbiology - Last 24 Hours (Table) 04/30/18 18:14 Blood Culture - Preliminary Blood No Growth after 24 hours 04/30/18 18:20 Blood Culture - Preliminary Blood No Growth after 24 hours Assessment and Plan Assessment: Right-sided multi lobar pneumonia Hemoptysis related to above Occult neoplastic process like lung cancer cannot be excluded Spiculated right-sided pulmonary nodules versus infiltrate Right tracheal lymphadenopathy infectious versus noninfectious Chronic persistent severe asthma Chronic gout Dyslipidemia Hypertension hypertensive cardiovascular disease Plan: Gentle rehydration Broad-spectrum antibiotics Continue home medications Hemoptysis has a stopped will monitor and observe on antibiotics Patient is being arranged for bronchoscopy tomorrow procedure explained to the patient Patient would definitely need a computed tomography scan of his chest after 6-8 weeks We'll follow closely further recommendations pending plan of care as per clinical response of the patient Time with Patient: Greater than 30
[2018-05-03] MEDS: SODIUM CHLORIDE 0.9% 1,000 ML IV SCH ×2 (00:52→14:18)
[2018-05-03] MEDS ORDERED: PROPOFOL 10 MG/ML 20 ML VIAL IV ONE (08:25)
[2018-05-03] MEDS ORDERED: KETAMINE 10 MG/ML 20 ML VIAL ONE (08:25)
[2018-05-03] MEDS ORDERED: LIDOCAINE 1% INJ 10MG/ML (20 ML MDV) ONE (08:25)
[2018-05-03] MEDS: ASCORBIC ACID 500 MG TAB PO SCH (10:43)
[2018-05-03] MEDS: CARVEDILOL 3.125 MG TAB PO SCH ×2 (10:43→16:33)
[2018-05-03] MEDS: ALLOPURINOL 300 MG TAB PO SCH (10:43)
[2018-05-03] MEDS: LEVOTHYROXINE 125 MCG TAB PO SCH (10:43)
[2018-05-03] MEDS: CYANOCOBALAMIN 500 MCG TAB PO SCH (10:44)
[2018-05-03] MEDS: TIMOLOL 0.5% OPHTH DROPS 5 ML BTL BOTH EYES SCH ×2 (10:44→21:01)
[2018-05-03] MEDS: GABAPENTIN 300 MG CAP PO SCH ×3 (10:44→21:01)
[2018-05-03] MEDS: ASPIRIN 81 MG PO SCH (10:44)
[2018-05-03] MEDS: INDOMETHACIN 25 MG CAP PO SCH ×2 (10:44→21:01)
[2018-05-03] MEDS: FAMOTIDINE 20 MG TAB PO SCH ×2 (10:44→21:01)
[2018-05-03] MEDS: ATORVASTATIN 20 MG TAB PO SCH (10:44)
[2018-05-03] MEDS: cefTRIAXone IN SWFI 1,000 MG/10 ML SYRINGE IVP SCH (10:44)
[2018-05-03] MEDS: MULTIVITAMINS, THERA 1 EACH TAB PO SCH (11:02)
--- NOTE | 2018-05-03 13:36 | P.PN ---
Subjective Progress Note Date: 05/03/18 This is an 87-year-old male, patient of Dr. Gutierrez, with a past medical history of chronic persistent asthma, chronic bronchitis, coronary artery disease status post CABG, and carotid stenosis. Patient states he just has a follow up last week with Dr Gutierrez and Dr. Ruff for his regular routine follow up visits and was feeling well. States yesterday he went to see his grandson play in his baseball game when he started to cough, states he coughed up some bright red blood. Afterwards, he coughed two more times and states hemoptysis worsened, so he went to the emergency department for evaluation. He denies any weakness, fever, chills, chest pain, no recent travel. Upon arrival to the emergency department chest x-ray revealed mild infiltrates at the right midlung, and COPD. A CT of the chest was obtained, there was a mass-like area in the right lung middle lobe, there was suspicion for neoplasm, no pulmonary embolism. Pulmonary was consulted, he was started on ceftriaxone 1000 mg IV piggyback every 24 hours and azithromycin 500mg daily, for multilobar right- sided pneumonia, blood cultures and sputum cultures were obtained and are pending. Patient reports since he has not had any further episodes of hemoptysis, he denies any shortness of breath. At this time pulmonology is recommending treatment for pneumonia and to repeat computed tomography scan of his chest in about 6-8 weeks as outpatient. 05/02: Patient evaluated today with at bedside. He reports he is feeling much better, he has not had any further episodes of hemoptysis. Will continue with IV antibiotics with ceftriaxone and azithromycin according to pulmonology notes, planning to schedule patient for bronchoscopy possibly tomorrow morning. Blood cultures show no growth to date, he remains afebrile, vital signs stable. 05/03: Patient underwent bronchoscopy today and was quite inflamed and some bleeding with the bronchoscope, subsequently the patient was readmitted back to the floor and he was in the hospital for another 24 hours will be started on Solu-Medrol along with IV antibiotic in this time. Objective - Vital Signs Vital signs: Vital Signs Temp 98.3 F 05/03/18 01:28 Pulse 57 L 05/03/18 01:28 Resp 16 05/03/18 01:28 BP 119/58 06/27/18 01:28 Pulse Ox 97 05/03/18 01:28 Intake & Output 05/02/18 05/03/18 05/03/18 18:59 06:59 18:59 Intake Total 225 Balance 225 Intake: Intake, IV Titration 225 Amount Sodium Chloride 0.9% 1, 225 000 ml @ 75 mls/hr IV . [id number] [facility] Rx#:[id number] Other: Voiding Method Toilet # Voids 1 2 - Exam - Exam - Constitutional General appearance: average body habitus, cooperative, no acute distress - EENT Eyes: PERRLA, normal appearance ENT: no hard of hearing, hearing grossly normal, normal oropharynx - Neck Neck: no lymphadenopathy, normal ROM, no rigidity, no thyromegaly Thyroid: bilateral: normal size, negative: enlarged, firm, nodule - Respiratory Respiratory: right: diminished, dullness, rales, left: CTA, rhonchi, negative: wheezing, prolonged expiration - Cardiovascular Rhythm: regular Heart sounds: normal: S1, S2 Abnormal Heart Sounds: systolic murmur - Gastrointestinal General gastrointestinal: no distended, no hepatomegaly, normal bowel sounds, no organomegaly, soft - Integumentary Integumentary: normal, no rash, no ulcer - Neurologic Neurologic: CNII-XII intact - Musculoskeletal Musculoskeletal: gait normal, strength equal bilaterally - Psychiatric Psychiatric: A&O x's 3, appropriate affect - Labs CBC & Chem 7: 04/30/18 13:51 04/30/18 13:51 Labs: Microbiology - Last 24 Hours (Table) 04/30/18 18:14 Blood Culture - Preliminary Blood No Growth after 48 hours 04/30/18 18:20 Blood Culture - Preliminary Blood No Growth after 48 hours Assessment and Plan Assessment: Assessment and plan: 1. Multilobular pneumonia. Spiculated right-sided pulmonary nodule versus infiltrate, rule out malignant lung mass, pulmonology is on consult, patient may need bronchoscopy depending on clinical response of therapy, will need repeat computed tomography scan of his chest in about 6-8 weeks as outpatient basis. Sputum and blood cultures obtained, ceftriaxone 1000 mg IV piggyback every 24 hours, azithromycin 500 mg daily, DuoNeb's every 4 hours, supplemental oxygen as needed. Possible bronchoscopy was done and showed quite a bit inflamed airways and started to bleed with the bronchoscope patient will be started on Solu-Medrol. 2. Hemoptysis related to bronchial bleed secondary to multi lobular pneumonia. Patient has not had any further episodes of hemoptysis, will treat underlying pneumonia, monitor for any recurrence of the hemoptysis. 3. Neurogenic claudication. Will have to rule out PAD, will order arterial Doppler as outpatient basis, continue gabapentin 300 mg 3 times a day. 4. Coronary artery disease. Continue aspirin 81 mg daily, atorvastatin 20 mg daily, carvedilol 3.125 mg twice a day. 5. Hypothyroidism. Continue levothyroxine 125 MCG daily. 6. Chronic back pain, history of multiple back surgeries. Continue indomethacin 50 mg twice a day 7. Hyperlipidemia. Continue atorvastatin 20 mg daily 8. History of gout. No recent flare, continue indomethacin 50 mg twice a day and allopurinol 300 mg daily. 9. History of glaucoma. Continue timolol 1 drop both eyes twice a day 10. DVT prophylaxis. No anticoagulation due to active bleeding, will encourage ambulation & SED's 11. GI prophylaxis. Pepcid 20mg BID
--- NOTE | 2018-05-03 14:14 | P.PN ---
Subjective Progress Note Date: 05/03/18 Principal diagnosis: Hemoptysis, Multi lobar right-sided pneumonia, spiculated lesion versus round pneumonia right middle lobe and right upper lobe, reactive lymphadenopathy, chronic persistent asthma, chronic gout, hypertension and hypertensive cardiovascular disease, dyslipidemia 05/03/2018, patient seen eval examined during the rounds clinically patient is still short of breath however does have intermittent dry cough denies any chest pain or radiation of pain, no more hemoptysis seen patient is scheduled for bronchoscopy later on today procedure explained to the patient at length including the family alternative risks and side effects reviewed 05/02/2018, patient seen eval examined during the rounds clinically patient has been doing better with no more hemoptysis has been seen by physical present at bedside patient has a significant improvement and wheezing noted able to get up and move around but still get short of breath does have intermittent dry nonproductive cough, computed tomography scan finding reviewed with the patient as well as his his also reviewed the bronchoscopy procedure along with the risk alternative and complication patient is scheduled for bronchoscopy tomorrow 05/01/2018, patient seen eval examined during the rounds clinically patient is doing better denies any cough or sputum production denies any hemoptysis breathing more comfortably CAT scan finding reviewed with the patient at length , denies any chest pain patient did admit for shortness of breath more than usual for the last 2 weeks with getting tired easily 87-year-old male well-known to me for problems associated chronic persistent asthma and chronic bronchitis has been on inhaled steroids antileukotrines as well as B2 agonists, patient the denies any fever but however in the last 2 weeks has been feeling very weak and was getting short of breath on activity and exertion he was playing his been using the without any problem 2 days prior to coming into the hospital on the day of admission he was admitted with episode of hemoptysis which occurred 3 times in succession and since then has a stopped, episode happened while he was watching ballgame of grandson he felt coughing episode went to the washroom and has hand full of bright red blood followed by 2 more episode with those problem he presented into the emergency department was seen evaluated examined Mr. Sanford admitted into the hospital since his been hospitalized has been on broad-spectrum antibiotics no episode of hemoptysis has been seen, he denies any exposure to TB in the past has been a smoker however quit several years ago he denies any chest pain denies similar episode in the past denies any weight loss night sweats fever or chills, denies any seizure-like to a loss of consciousness) denies any bowel or bladder dysfunction Objective - Vital Signs Vital signs: Vital Signs Temp 98.3 F 05/03/18 01:28 Pulse 57 L 05/03/18 01:28 Resp 16 05/03/18 01:28 BP 119/58 05/03/18 01:28 Pulse Ox 97 05/03/18 01:28 Intake & Output 05/02/18 05/03/18 05/03/18 18:59 06:59 18:59 Intake Total 225 600 Balance 225 600 Intake: Intake, IV Titration 225 600 Amount Sodium Chloride 0.9% 1, 225 600 000 ml @ 75 mls/hr IV . [id number] [facility] Rx#:[id number] Other: Voiding Method Toilet # Voids 1 2 4 - Exam General appearance: alert, in no apparent distress Head exam: Present: atraumatic Eye exam: Present: normal appearance, PERRL ENT exam: Present: normal oropharynx Neck exam: Present: normal inspection Respiratory exam: Present: normal lung sounds bilaterally Cardiovascular Exam: Present: regular rate, normal rhythm, systolic murmur ( Patient states he is aware of murmur) GI/Abdominal exam: Present: soft. Absent: tenderness Extremities exam: Present: normal inspection. Absent: pedal edema, calf tenderness Neurological exam: Present: alert Psychiatric exam: Present: normal affect, normal mood Skin exam: Present: normal color - Labs CBC & Chem 7: 04/30/18 13:51 04/30/18 13:51 Labs: Microbiology - Last 24 Hours (Table) 04/30/18 18:14 Blood Culture - Preliminary Blood No Growth after 48 hours 04/30/18 18:20 Blood Culture - Preliminary Blood No Growth after 48 hours Assessment and Plan Assessment: Right-sided multi lobar pneumonia Hemoptysis related to above Occult neoplastic process like lung cancer cannot be excluded Spiculated right-sided pulmonary nodules versus infiltrate Right tracheal lymphadenopathy infectious versus noninfectious Chronic persistent severe asthma Chronic gout Dyslipidemia Hypertension hypertensive cardiovascular disease Plan: Gentle rehydration Broad-spectrum antibiotics Continue home medications Hemoptysis has stopped will monitor and observe on antibiotics Patient is being arranged for bronchoscopy later on today procedure explained to the patient Patient would definitely need a computed tomography scan of his chest after 6-8 weeks We'll follow closely further recommendations pending plan of care as per clinical response of the patient Time with Patient: Greater than 30
--- NOTE | 2018-05-03 14:18 | P.PCN ---
Date of Procedure: 05/03/18 Preoperative Diagnosis: Hemoptysis, right sided multi lobar pneumonia, spiculated lesion in the right lower lobe, chronic persistent severe asthma Postoperative Diagnosis: As above Procedure(s) Performed: #1 bronchoscopy #2 bronchoalveolar lavage from the right upper lobe right lower lobe and left lower lobe Anesthesia: other Surgeon: Gil Ruff Estimated Blood Loss (ml): 5 Condition: stable Disposition: floor Indications for Procedure: As above Operative Findings: As below Description of Procedure: Fiberoptic bronchoscope was passed through the right nares, entered into the laryngeal area awoken cords were normal structure and function tip of the scope was has beyond the vocal cords into the trachea diffuse right heme edema in the trachea as well as bilateral bronchial tree was noted no source of bleeding identified but the mucosa was very inflamed bilaterally he is eating bleed on touching and doing well otherwise. Was performed from the right upper lobe right lower lobe and left lower lobe patient on [place] well no complication noted
[2018-05-03] MEDS: AZITHROMYCIN 500 MG TAB PO SCH (16:33)
[2018-05-03] MEDS: methylPREDNISolone SOD SUCCI 125 MG/2 ML VIAL IV SCH ×2 (16:34→23:36)
[2018-05-03] MEDS: IPRATROPIUM-ALBUTEROL 3 ML NEB INHALATION PRN (16:44)
[2018-05-04] MEDS: IPRATROPIUM-ALBUTEROL 3 ML NEB INHALATION PRN (00:06)
[2018-05-04] MEDS: SODIUM CHLORIDE 0.9% 1,000 ML IV SCH ×2 (02:01→17:43)
[2018-05-04] MEDS: LEVOTHYROXINE 125 MCG TAB PO SCH (05:33)
[2018-05-04 07:17] LABS: Glucose,Whole Blood 175 mg/dL (75-99)
[2018-05-04] MEDS: CARVEDILOL 3.125 MG TAB PO SCH ×2 (07:32→17:44)
[2018-05-04] MEDS: GABAPENTIN 300 MG CAP PO SCH ×3 (08:13→21:23)
[2018-05-04] MEDS: methylPREDNISolone SOD SUCCI 125 MG/2 ML VIAL IV SCH ×3 (08:13→23:37)
[2018-05-04] MEDS: INDOMETHACIN 25 MG CAP PO SCH ×2 (08:13→20:19)
[2018-05-04] MEDS: ALLOPURINOL 300 MG TAB PO SCH (08:14)
[2018-05-04] MEDS: ASPIRIN 81 MG PO SCH (08:14)
[2018-05-04] MEDS: ASCORBIC ACID 500 MG TAB PO SCH (08:14)
[2018-05-04] MEDS: ATORVASTATIN 20 MG TAB PO SCH (08:14)
[2018-05-04] MEDS: FAMOTIDINE 20 MG TAB PO SCH ×2 (08:14→20:20)
[2018-05-04] MEDS: CYANOCOBALAMIN 500 MCG TAB PO SCH (08:14)
[2018-05-04] MEDS: MULTIVITAMINS, THERA 1 EACH TAB PO SCH (08:14)
[2018-05-04] MEDS: TIMOLOL 0.5% OPHTH DROPS 5 ML BTL BOTH EYES SCH ×2 (08:15→20:20)
[2018-05-04] MEDS: cefTRIAXone IN SWFI 1,000 MG/10 ML SYRINGE IVP SCH (08:22)
[2018-05-04 11:22] LABS: Basophils % (A) 0 %; Eosinophils % (A) 0 %; Lymphocytes # (A) 0.7 k/uL (1.0-4.8); Lymphocytes % (A) 8 %; MCH 32.1 pg (25.0-35.0); MCHC 31.3 g/dL (31.0-37.0); MCV 102.7 fL (80.0-100.0); Macrocytosis Slight; Mean Platelet Volume 7.6; Monocytes # (A) 0.2 k/uL (0-1.0); Monocytes % (A) 2 %; Neutrophils # (A) 8.1 k/uL (1.3-7.7); Neutrophils % (A) 90 %; Platelet Count 235 k/uL (150-450); RBC 3.11 m/uL (4.30-5.90); RDW 12.6 % (11.5-15.5); WBC 9.1 k/uL (3.8-10.6)
[2018-05-04 11:25] LABS: Glucose,Whole Blood 256 mg/dL (75-99)
[2018-05-04 11:27] LABS: ALT 31 U/L (21-72); AST 23 U/L (17-59); Albumin 3.4 g/dL (3.5-5.0); Alkaline Phosphatase 83 U/L (38-126); Anion Gap 12 mmol/L; Blood Urea Nitrogen 22 mg/dL (9-20); Calcium 8.4 mg/dL (8.4-10.2); Carbon Dioxide 23 mmol/L (22-30); Chloride 104 mmol/L (98-107); Glucose 258 mg/dL (74-99); Magnesium 1.9 mg/dL (1.6-2.3); Potassium 4.3 mmol/L (3.5-5.1); Sodium 139 mmol/L (137-145); Total Bilirubin 0.1 mg/dL (0.2-1.3); Total Protein 6.4 g/dL (6.3-8.2)
--- NOTE | 2018-05-04 13:03 | P.PN ---
Subjective This is an 87-year-old male, patient of Dr. Gutierrez, with a past medical history of chronic persistent asthma, chronic bronchitis, coronary artery disease status post CABG, and carotid stenosis. Patient states he just has a follow up last week with Dr Gutierrez and Dr. Ruff for his regular routine follow up visits and was feeling well. States yesterday he went to see his grandson play in his baseball game when he started to cough, states he coughed up some bright red blood. Afterwards, he coughed two more times and states hemoptysis worsened, so he went to the emergency department for evaluation. He denies any weakness, fever, chills, chest pain, no recent travel. Upon arrival to the emergency department chest x-ray revealed mild infiltrates at the right midlung, and COPD. A CT of the chest was obtained, there was a mass-like area in the right lung middle lobe, there was suspicion for neoplasm, no pulmonary embolism. Pulmonary was consulted, he was started on ceftriaxone 1000 mg IV piggyback every 24 hours and azithromycin 500mg daily, for multilobar right- sided pneumonia, blood cultures and sputum cultures were obtained and are pending. Patient reports since he has not had any further episodes of hemoptysis, he denies any shortness of breath. At this time pulmonology is recommending treatment for pneumonia and to repeat computed tomography scan of his chest in about 6-8 weeks as outpatient. 05/02: Patient evaluated today with at bedside. He reports he is feeling much better, he has not had any further episodes of hemoptysis. Will continue with IV antibiotics with ceftriaxone and azithromycin according to pulmonology notes, planning to schedule patient for bronchoscopy possibly tomorrow morning. Blood cultures show no growth to date, he remains afebrile, vital signs stable. 05/03: Patient underwent bronchoscopy today and was quite inflamed and some bleeding with the bronchoscope, subsequently the patient was readmitted back to the floor and he was in the hospital for another 24 hours will be started on Solu-Medrol along with IV antibiotic in this time. 05/04: Patient resting in bedside chair with family at bedside. Patient noted to have some bradycardia this morning, heart rate was running in the 40's, coreg was held, heart rate running in the 50's now. He denies any chest pain, dizziness, or shortness of breath. Patient report he is feeling well. He denies any further episodes of hemoptysis. Cytology from bronchoscopy is pending. He continues on Solu-Medrol and Azithromycin. Blood cultures show no growth to date. It is recommended that he have a repeat CT of his chest in 6-8 weeks. Will watch heart rate for the next 24 hours, if stable may discharge tomorrow. Objective - Vital Signs Vital signs: Vital Signs Temp 97.9 F 05/04/18 07:15 Pulse 57 L 05/04/18 07:15 Resp 16 05/04/18 07:15 BP 122/67 05/04/18 07:15 Pulse Ox 96 05/04/18 07:15 Intake & Output 05/03/18 05/04/18 05/04/18 18:59 06:59 18:59 Intake Total 600 1065 480 Balance 600 1065 480 Intake: Intake, IV Titration 600 825 Amount Sodium Chloride 0.9% 1, 600 825 000 ml @ 75 mls/hr IV . [id number] [facility] Rx#:[id number] Oral 240 480 Other: # Voids 4 2 - Exam - Constitutional General appearance: average body habitus, cooperative, no acute distress - EENT Eyes: PERRLA, normal appearance ENT: no hard of hearing, hearing grossly normal, normal oropharynx - Neck Neck: no lymphadenopathy, normal ROM, no rigidity, no thyromegaly Thyroid: bilateral: normal size, negative: enlarged, firm, nodule - Respiratory Respiratory: right: diminished, dullness, rales, left: CTA, rhonchi, negative: wheezing, prolonged expiration - Cardiovascular Rhythm: regular Heart sounds: normal: S1, S2 Abnormal Heart Sounds: systolic murmur - Gastrointestinal General gastrointestinal: no distended, no hepatomegaly, normal bowel sounds, no organomegaly, soft - Integumentary Integumentary: normal, no rash, no ulcer - Neurologic Neurologic: CNII-XII intact - Musculoskeletal Musculoskeletal: gait normal, strength equal bilaterally - Psychiatric Psychiatric: A&O x's 3, appropriate affect - Labs CBC & Chem 7: 05/04/18 10:52 05/04/18 10:52 Labs: Abnormal Lab Results - Last 24 Hours (Table) 05/04/18 Range/Units 07:03 POC Glucose (mg/dL) 175 H (75-99) mg/dL Microbiology - Last 24 Hours (Table) 05/03/18 08:45 Acid Fast Bacilli Smear - Final Bronchial Washings - Random Acid Fast Bacilli Culture - Preliminary 05/03/18 08:45 Gram Stain - Preliminary Bronchial Washings - Random Bronchial Washings Culture - Preliminary 05/03/18 08:45 Fungal Culture - Preliminary Bronchial Washings - Random 04/30/18 18:14 Blood Culture - Preliminary Blood No Growth after 72 hours 04/30/18 18:20 Blood Culture - Preliminary Blood No Growth after 72 hours Assessment and Plan Plan: 1. Multilobular pneumonia. Spiculated right-sided pulmonary nodule versus infiltrate, rule out malignant lung mass, pulmonology is on consult, patient may need bronchoscopy depending on clinical response of therapy, will need repeat computed tomography scan of his chest in about 6-8 weeks as outpatient basis. Sputum and blood cultures obtained, ceftriaxone 1000 mg IV piggyback every 24 hours, azithromycin 500 mg daily, DuoNeb's every 4 hours, supplemental oxygen as needed. Bronchoscopy completed, pending cytology results. 2. Hemoptysis related to bronchial bleed secondary to multi lobular pneumonia. Patient has not had any further episodes of hemoptysis, will treat underlying pneumonia, monitor for any recurrence of the hemoptysis. 3. Neurogenic claudication. Will have to rule out PAD, will order arterial Doppler as outpatient basis, continue gabapentin 300 mg 3 times a day. 4. Coronary artery disease. Continue aspirin 81 mg daily, atorvastatin 20 mg daily, carvedilol 3.125 mg twice a day. 5. Hypothyroidism. Continue levothyroxine 125 MCG daily. 6. Chronic back pain, history of multiple back surgeries. Continue indomethacin 50 mg twice a day 7. Hyperlipidemia. Continue atorvastatin 20 mg daily 8. History of gout. No recent flare, continue indomethacin 50 mg twice a day and allopurinol 300 mg daily. 9. History of glaucoma. Continue timolol 1 drop both eyes twice a day 10. DVT prophylaxis. No anticoagulation due to active bleeding, will encourage ambulation & SED's 11. GI prophylaxis. Pepcid 20mg BID The above impression and plan of care have been discussed and directed by signing physician. Crystal Spencer nurse practitioner acting as scribe for signing physician.
[2018-05-04] MEDS: AZITHROMYCIN 500 MG TAB PO SCH (17:04)
--- NOTE | 2018-05-04 19:06 | P.PN ---
Subjective Progress Note Date: 05/04/18 Principal diagnosis: Hemoptysis, Multi lobar right-sided pneumonia, spiculated lesion versus round pneumonia right middle lobe and right upper lobe, reactive lymphadenopathy, chronic persistent asthma, chronic gout, hypertension and hypertensive cardiovascular disease, dyslipidemia 05/04/2018, patient seen eval reexamined during the rounds clinically patient has been doing slightly better less wheezy, patient has been started on steroids due to significant wheezing yesterday and finding of significant inflammation in the airways appears to responding well no hemoptysis seen, bronchoalveolar lavage findings has been reviewed Gram stain revealed a few gram -positive cocci final ID is pending however the fungus as well as AFB SMEARS are negative, 05/03/2018, patient seen eval examined during the rounds clinically patient is still short of breath however does have intermittent dry cough denies any chest pain or radiation of pain, no more hemoptysis seen patient is scheduled for bronchoscopy later on today procedure explained to the patient at length including the family alternative risks and side effects reviewed 05/02/2018, patient seen eval examined during the rounds clinically patient has been doing better with no more hemoptysis has been seen by physical present at bedside patient has a significant improvement and wheezing noted able to get up and move around but still get short of breath does have intermittent dry nonproductive cough, computed tomography scan finding reviewed with the patient as well as his his also reviewed the bronchoscopy procedure along with the risk alternative and complication patient is scheduled for bronchoscopy tomorrow 05/01/2018, patient seen eval examined during the rounds clinically patient is doing better denies any cough or sputum production denies any hemoptysis breathing more comfortably CAT scan finding reviewed with the patient at length , denies any chest pain patient did admit for shortness of breath more than usual for the last 2 weeks with getting tired easily 87-year-old male well-known to me for problems associated chronic persistent asthma and chronic bronchitis has been on inhaled steroids antileukotrines as well as B2 agonists, patient the denies any fever but however in the last 2 weeks has been feeling very weak and was getting short of breath on activity and exertion he was playing his been using the without any problem 2 days prior to coming into the hospital on the day of admission he was admitted with episode of hemoptysis which occurred 3 times in succession and since then has a stopped, episode happened while he was watching [employer] he felt coughing episode went to the washroom and has hand full of bright red blood followed by 2 more episode with those problem he presented into the emergency department was seen evaluated examined Mr. Sanford admitted into the hospital since his been hospitalized has been on broad-spectrum antibiotics no episode of hemoptysis has been seen, he denies any exposure to TB in the past has been a smoker however quit several years ago he denies any chest pain denies similar episode in the past denies any weight loss night sweats fever or chills, denies any seizure-like to a loss of consciousness) denies any bowel or bladder dysfunction Objective - Vital Signs Vital signs: Vital Signs Temp 96.9 F L 05/04/18 17:15 Pulse 71 05/04/18 17:15 Resp 18 05/04/18 17:15 BP 123/68 05/04/18 17:15 Pulse Ox 96 05/04/18 17:15 Intake & Output 05/04/18 05/04/18 05/05/18 06:59 18:59 06:59 Intake Total 1065 717 Balance 1065 717 Intake: Intake, IV Titration 825 Amount Sodium Chloride 0.9% 1, 825 000 ml @ 75 mls/hr IV . [id number] REBECA Rx#:[id number] Oral 240 717 Other: # Voids 2 1 - Exam General appearance: alert, in no apparent distress Head exam: Present: atraumatic Eye exam: Present: normal appearance, PERRL ENT exam: Present: normal oropharynx Neck exam: Present: normal inspection Respiratory exam: Present: normal lung sounds bilaterally Cardiovascular Exam: Present: regular rate, normal rhythm, systolic murmur ( Patient states he is aware of murmur) GI/Abdominal exam: Present: soft. Absent: tenderness Extremities exam: Present: normal inspection. Absent: pedal edema, calf tenderness Neurological exam: Present: alert Psychiatric exam: Present: normal affect, normal mood Skin exam: Present: normal color - Labs CBC & Chem 7: 05/04/18 10:52 05/04/18 10:52 Labs: Abnormal Lab Results - Last 24 Hours (Table) 05/04/18 05/04/18 05/04/18 Range/Units 07:03 10:52 10:52 RBC 3.11 L (4.30-5.90) m/uL Hgb 10.0 L D (13.0-17.5) gm/dL Hct 32.0 L (39.0-53.0) % MCV 102.7 H (80.0-100.0) fL Neutrophils # 8.1 H (1.3-7.7) k/uL Lymphocytes # 0.7 L (1.0-4.8) k/uL BUN 22 H (9-20) mg/dL Glucose 258 H (74-99) mg/dL POC Glucose (mg/dL) 175 H (75-99) mg/dL Total Bilirubin 0.1 L (0.2-1.3) mg/dL Albumin 3.4 L (3.5-5.0) g/dL 05/04/18 Range/Units 11:17 RBC (4.30-5.90) m/uL Hgb (13.0-17.5) gm/dL Hct (39.0-53.0) % MCV (80.0-100.0) fL Neutrophils # (1.3-7.7) k/uL Lymphocytes # (1.0-4.8) k/uL BUN (9-20) mg/dL Glucose (74-99) mg/dL POC Glucose (mg/dL) 256 H (75-99) mg/dL Total Bilirubin (0.2-1.3) mg/dL Albumin (3.5-5.0) g/dL Microbiology - Last 24 Hours (Table) 05/03/18 08:45 Acid Fast Bacilli Smear - Final Bronchial Washings - Random Acid Fast Bacilli Culture - Preliminary 05/03/18 08:45 Gram Stain - Preliminary Bronchial Washings - Random Bronchial Washings Culture - Preliminary 05/03/18 08:45 Fungal Culture - Preliminary Bronchial Washings - Random 04/30/18 18:14 Blood Culture - Preliminary Blood No Growth after 72 hours 04/30/18 18:20 Blood Culture - Preliminary Blood No Growth after 72 hours Assessment and Plan Assessment: Right-sided multi lobar pneumonia Hemoptysis related to above, resolved Acute asthma with baseline Chronic persistent severe asthma Occult neoplastic process like lung cancer cannot be excluded Spiculated right-sided pulmonary nodules versus infiltrate Right tracheal lymphadenopathy infectious versus noninfectious Chronic gout Dyslipidemia Hypertension hypertensive cardiovascular disease Plan: Gentle rehydration Broad-spectrum antibiotics IV steroids Continue home medications Hemoptysis has stopped will monitor and observe on antibiotics Patient is status post bronchoscopy findings reviewed with the patient and at length Patient would definitely need a computed tomography scan of his chest after 6-8 weeks We'll follow closely further recommendations pending plan of care as per clinical response of the patient If remains stable patient did be discharged home tomorrow on oral antibiotics like Augmentin 875 twice a day for another 7-10 days along with Medrol Dosepak 4 mg Time with Patient: Greater than 30
[2018-05-04 23:56] VITALS: TEMP 97.7
[2018-05-05] MEDS: IPRATROPIUM-ALBUTEROL 3 ML NEB INHALATION PRN (05:36)
[2018-05-05 06:26] VITALS: BP 142/79; PULSE 90; RESP 24
[2018-05-05] MEDS: LEVOTHYROXINE 125 MCG TAB PO SCH (06:47)
[2018-05-05] MEDS: SODIUM CHLORIDE 0.9% 1,000 ML IV SCH (06:47)
[2018-05-05] MEDS: ASCORBIC ACID 500 MG TAB PO SCH (07:28)
[2018-05-05] MEDS: GABAPENTIN 300 MG CAP PO SCH (07:28)
[2018-05-05] MEDS: FAMOTIDINE 20 MG TAB PO SCH (07:28)
[2018-05-05] MEDS: methylPREDNISolone SOD SUCCI 125 MG/2 ML VIAL IV SCH (07:28)
[2018-05-05] MEDS: ASPIRIN 81 MG PO SCH (07:28)
[2018-05-05] MEDS: CYANOCOBALAMIN 500 MCG TAB PO SCH (07:28)
[2018-05-05] MEDS: ALLOPURINOL 300 MG TAB PO SCH (07:28)
[2018-05-05] MEDS: ATORVASTATIN 20 MG TAB PO SCH (07:28)
[2018-05-05] MEDS: CARVEDILOL 3.125 MG TAB PO SCH (07:28)
[2018-05-05] MEDS: INDOMETHACIN 25 MG CAP PO SCH (07:28)
[2018-05-05] MEDS: TIMOLOL 0.5% OPHTH DROPS 5 ML BTL BOTH EYES SCH (07:29)
--- NOTE | 2018-05-05 09:57 | XR ---
EXAMINATION TYPE: XR chest 2V DATE OF EXAM: 05/05/2018 COMPARISON: 05/01/2018 HISTORY: 87-year-old male right-sided nodules and pneumonia TECHNIQUE: Frontal and lateral views FINDINGS: Heart remains upper limits of normal in size. Mild diffuse interstitial prominence. Some patchy right midlung density remains, better demonstrated on the patient's 04/30/2018 CT. Posterior thoracolumbar fusion hardware. Spondylotic change at the superior aspect of the fusion. Flattening of the hemidiaph ragms with hyperinflation. No pleural effusion. IMPRESSION: COPD with stable patchy right midlung densities.
[2018-05-05] MEDS: MULTIVITAMINS, THERA 1 EACH TAB PO SCH (11:13)
--- NOTE | 2018-05-05 15:56 | P.PN ---
Subjective Progress Note Date: 05/05/18 Principal diagnosis: Hemoptysis, Multi lobar right-sided pneumonia, spiculated lesion versus round pneumonia right middle lobe and right upper lobe, reactive lymphadenopathy, chronic persistent asthma, chronic gout, hypertension and hypertensive cardiovascular disease, dyslipidemia 05/05/2018, patient seen eval and evaluated examined during the rounds clinically patient has been doing well awake and alert breathing comfortably cuff congestion shortness breath is improved no wheezing has been noted no hemoptysis has been noted culture results and report including bronchial washing has been noted normal respiratory vielka is a final ID final culture however are pending, from respiratory. Care standpoint patient can be discharged home on oral antibiotics and tapering steroids and follow-up in outpatient setting 05/04/2018, patient seen eval reexamined during the rounds clinically patient has been doing slightly better less wheezy, patient has been started on steroids due to significant wheezing yesterday and finding of significant inflammation in the airways appears to responding well no hemoptysis seen, bronchoalveolar lavage findings has been reviewed Gram stain revealed a few gram -positive cocci final ID is pending however the fungus as well as AFB SMEARS are negative, 05/03/2018, patient seen eval examined during the rounds clinically patient is still short of breath however does have intermittent dry cough denies any chest pain or radiation of pain, no more hemoptysis seen patient is scheduled for bronchoscopy later on today procedure explained to the patient at length including the family alternative risks and side effects reviewed 05/02/2018, patient seen eval examined during the rounds clinically patient has been doing better with no more hemoptysis has been seen by physical present at bedside patient has a significant improvement and wheezing noted able to get up and move around but still get short of breath does have intermittent dry nonproductive cough, computed tomography scan finding reviewed with the patient as well as his his also reviewed the bronchoscopy procedure along with the risk alternative and complication patient is scheduled for bronchoscopy tomorrow 05/01/2018, patient seen eval examined during the rounds clinically patient is doing better denies any cough or sputum production denies any hemoptysis breathing more comfortably CAT scan finding reviewed with the patient at length , denies any chest pain patient did admit for shortness of breath more than usual for the last 2 weeks with getting tired easily 87-year-old male well-known to me for problems associated chronic persistent asthma and chronic bronchitis has been on inhaled steroids antileukotrines as well as B2 agonists, patient the denies any fever but however in the last 2 weeks has been feeling very weak and was getting short of breath on activity and exertion he was playing his been using the without any problem 2 days prior to coming into the hospital on the day of admission he was admitted with episode of hemoptysis which occurred 3 times in succession and since then has a stopped, episode happened while he was watching ballgame of grandson he felt coughing episode went to the washroom and has hand full of bright red blood followed by 2 more episode with those problem he presented into the emergency department was seen evaluated examined Mr. Sanford admitted into the hospital since his been hospitalized has been on broad-spectrum antibiotics no episode of hemoptysis has been seen, he denies any exposure to TB in the past has been a smoker however quit several years ago he denies any chest pain denies similar episode in the past denies any weight loss night sweats fever or chills, denies any seizure-like to a loss of consciousness) denies any bowel or bladder dysfunction Objective - Vital Signs Vital signs: Vital Signs Temp 97.7 F 05/05/18 05:35 Pulse 90 05/05/18 06:26 Resp 24 05/05/18 06:26 BP 142/79 05/05/18 06:26 Pulse Ox 97 05/05/18 06:26 Intake & Output 05/04/18 05/05/18 05/05/18 18:59 06:59 18:59 Intake Total 717 Balance 717 Intake: Oral 717 Other: Voiding Method Toilet Toilet # Voids 1 1 3 # Bowel Movements 1 - Exam General appearance: alert, in no apparent distress Head exam: Present: atraumatic Eye exam: Present: normal appearance, PERRL ENT exam: Present: normal oropharynx Neck exam: Present: normal inspection Respiratory exam: Present: normal lung sounds bilaterally Cardiovascular Exam: Present: regular rate, normal rhythm, systolic murmur ( Patient states he is aware of murmur) GI/Abdominal exam: Present: soft. Absent: tenderness Extremities exam: Present: normal inspection. Absent: pedal edema, calf tenderness Neurological exam: Present: alert Psychiatric exam: Present: normal affect, normal mood Skin exam: Present: normal color - Labs CBC & Chem 7: 05/04/18 10:52 05/04/18 10:52 Labs: Microbiology - Last 24 Hours (Table) 05/03/18 08:45 Gram Stain - Final Bronchial Washings - Random Bronchial Washings Culture - Final 04/30/18 18:14 Blood Culture - Preliminary Blood No Growth after 96 hours 04/30/18 18:20 Blood Culture - Preliminary Blood No Growth after 96 hours Assessment and Plan Assessment: Right-sided multi lobar pneumonia Hemoptysis related to above, resolved Acute asthma with baseline Chronic persistent severe asthma Occult neoplastic process like lung cancer cannot be excluded Spiculated right-sided pulmonary nodules versus infiltrate Right tracheal lymphadenopathy infectious versus noninfectious Chronic gout Dyslipidemia Hypertension hypertensive cardiovascular disease Plan: Gentle rehydration Broad-spectrum antibiotics IV steroids Continue home medications Hemoptysis has stopped will monitor and observe on antibiotics Patient is status post bronchoscopy findings reviewed with the patient and at length Patient would definitely need a computed tomography scan of his chest after 6-8 weeks We'll follow closely further recommendations pending plan of care as per clinical response of the patient If remains stable patient did be discharged home tomorrow on oral antibiotics like Augmentin 875 twice a day for another 7-10 days along with Medrol Dosepak 4 mg Time with Patient: Greater than 30
== END 2018-05-05 13:57 | disposition home or self-care (01) | DRG 166 ==
LOC: EC 13:05 → 3SUR 16:46 → OBSVTOIN 05-01 08:21 → 4MS4W 05-04 17:09
PROVIDERS: ADMIT Internal Medicine; ATTEND Internal Medicine
PROC: 0B9C8ZX Drainage of Right Upper Lung Lobe, Via Natural or Artificial Opening Endoscopic, Diagnostic (ICD-10-PCS; 2018-05-03)
PROC: 0B9F8ZX Drainage of Right Lower Lung Lobe, Via Natural or Artificial Opening Endoscopic, Diagnostic (ICD-10-PCS; 2018-05-03)
PROC: 0B9J8ZX Drainage of Left Lower Lung Lobe, Via Natural or Artificial Opening Endoscopic, Diagnostic (ICD-10-PCS; principal; 2018-05-03 08:30)
DX: C34.91 Malignant neoplasm of unspecified part of right bronchus or lung (principal); J18.9 Pneumonia, unspecified organism; J44.0 Chronic obstructive pulmonary disease with (acute) lower respiratory infection; R04.2 Hemoptysis; I25.10 Atherosclerotic heart disease of native coronary artery without angina pectoris; J45.50 Severe persistent asthma, uncomplicated; R00.1 Bradycardia, unspecified; I11.9 Hypertensive heart disease without heart failure; M1A.9XX0 Chronic gout, unspecified, without tophus (tophi); M48.062 Spinal stenosis, lumbar region with neurogenic claudication; I65.29 Occlusion and stenosis of unspecified carotid artery; E78.5 Hyperlipidemia, unspecified; E03.9 Hypothyroidism, unspecified; R53.1 Weakness; G89.29 Other chronic pain; H40.9 Unspecified glaucoma; M54.9 Dorsalgia, unspecified; Z98.49 Cataract extraction status, unspecified eye; Z79.82 Long term (current) use of aspirin; Z79.899 Other long term (current) drug therapy; Z80.0 Family history of malignant neoplasm of digestive organs; Z82.3 Family history of stroke; Z80.8 Family history of malignant neoplasm of other organs or systems; Z95.1 Presence of aortocoronary bypass graft; Z87.891 Personal history of nicotine dependence; Z88.5 Allergy status to narcotic agent; Z82.5 Family history of asthma and other chronic lower respiratory diseases
CPT/HCPCS: 31624; 36415; 71046; 71275; 80053; 83735; 85025; 85610; 85730; 87040; 87070; 87102; 87116; 87205; 87206; 87252; 87299; 87496; 87498; 87502; 87529; 87541; 87634; 87798; 88108; 88305; 93005; 94640; 94760; 99285

== ENCOUNTER → 2018-07-05 | Outpatient (CLI) | payer MEDICARE, BC ==
--- NOTE | 2018-07-06 14:55 | CT ---
EXAMINATION TYPE: CT chest wo con DATE OF EXAM: 07/05/2018 COMPARISON: 04/30/2018 HISTORY: 87-year-old male follow-up for solitary pulmonary nodule. TECHNIQUE: Contiguous axial scanning of the chest without IV contrast. Coronal and sagittal reconstru ctions performed. CT DLP: 609 mGycm Automated exposure control for dose reduction was used. FINDINGS: Median sternotomy wires are present with post-CABG changes in the mediastinum. Heart upper limits of normal in size without pericardial effusion. Aortic valvular calcifications are present. Aorta normal caliber with bovine configuration to the aortic arch. Large caliber to the main right and left pulmonary arteries and 3.0-2.8 cm, respectively, suggesting underlying pulmonary arterial hypertension. Right paratracheal lymph node now measures 8 mm versus 1.1 cm, previously. No thoracic lymphadenopath y by CT size criteria. Mild bilateral gynecomastia. Mild diffuse bronchial wall thickening with a mild to moderate emphysematous change throughout. The multifocal areas of masslike consolidation shows improvement. Residual focal densities remain in the right upper lobe axial image 26, right lower lobe at the mid lung level, axial image 27, right mi ddle lobe, axial image 34. Streaky areas of atelectasis and scarring in the lower lungs. No new conso lidation and no pleural effusion. Small hiatal hernia. Layering sludge within the gallbladder, diverticulum of the third portion of the duodenum, bilateral renal arterial calcifications, small lateral splenule are all redemonstrated. Bones: Posterior fusion hardware in the visualized lumbar spine. Degenerative changes of both shoulde rs. Accentuated mid to lower thoracic kyphosis with associated degenerative disc disease. IMPRESSION: 1. COPD WITH MILD EMPHYSEMA AND PULMONARY ARTERIAL HYPERTENSION. 2. MULTIFOCAL MASSLIKE AREAS OF CONSOLIDATION IN THE RIGHT LUNG SHOW IMPROVEMENT WITH SMALL AREAS OF RESIDUAL DENSITY. SUSPECT RESOLUTION OF PREVIOUS PNEUMONIA OR OTHER INFLAMMATORY PROCESS WITH AREAS O F SCARRING REMAINING. CONSIDER A 6-12 MONTH FOLLOW-UP TO ASSESS FOR ANY CONTINUED EVOLVING CHANGES. 3. THE PREVIOUSLY NOTED MEDIASTINAL LYMPH NODE HAS ALSO IMPROVED AND IS NOW NORMAL SIZE. 4. SMALL HIATAL HERNIA AND LAYERING GALLBLADDER SLUDGE.
== END | disposition home or self-care (01) ==
LOC: RADCTMAIN 12:24
PROVIDERS: ATTEND Internal Medicine Sleep Medicine
DX: J43.9 Emphysema, unspecified (principal)
CPT/HCPCS: 71250